=== PATIENT | female | born 1970 | race Caucasian/White ===

== ENCOUNTER 2017-07-28 07:07 | Emergency (ER) | payer BC ==
[~2017-07-28] VITALS: Ht 160 cm; Wt 79.9 kg
[~2017-07-28 07:07] MED LIST: 12 HOUR DECONG120 M1 PO; AMBIEN5 MG PO; CALCIUM 600 +1 EAC9 PO; CENTRUM ULTRA1 EAC1 PO; FIBERCON625 MG PO; IBUPROFEN400 MG PO; MAXALT10 MG PO; MIRENA52 MG IY; TYLENOL EXTRA500 MG PO; VALTREX50 MG/ML PO; ZYRTEC10 M3 PO
[2017-07-28 07:38] LABS: ADD MIUA? YES; BILIRUBIN NEGATIVE; BLOOD SMALL; COLOR YELLOW ((YELLOW)); GLUCOSE (STRIP) NEGATIVE; KETONES NEGATIVE; LEUKOCYTES NEGATIVE; NITRITE NEGATIVE; PROTEIN (STRIP) NEGATIVE; SPECIFIC GRAVITY 1.026 (1.000-1.030); UROBILINOGEN 0.2 MG/DL (0.2-1.0)
[2017-07-28 07:55] LABS: EPITHELIAL CELLS 1+ /HPF; MUCUS 1+ /LPF
[2017-07-28 07:56] LABS: BACTERIA RARE /HPF; CASTS NONE SEEN /LPF; CRYSTALS NONE SEEN; RED BLOOD CELLS 0-5 /HPF (0-5); UCUL ADDED? NO; WHITE BLOOD CELLS 0-5 /HPF (0-5)
[2017-07-28 08:50] LABS: HEMATOCRIT 39.8 % (36.0-46.0); MCH 31.5 PG (29.0-34.0); MCHC 33.7 G/DL (30.0-36.0); MCV 93.6 FL (83-99); MEAN PLAT.VOLUME 9.7 uM^3 (9.5-12.4); PLATELET COUNT 244 K/uL (156-360); RBC DIS.WIDTH-CV 12.3 % (11.8-14.6); RBC DIS.WIDTH-SD 42.2 % (39-53); RED BLOOD COUNT 4.25 M/uL (3.80-5.20); WHITE BLOOD COUNT 15.2 K/uL (4.1-10.2)
[2017-07-28 09:07] LABS: CHLORIDE 105 mEq/L (99-109); POTASSIUM 4.3 mEq/L (3.7-5.4); SODIUM 138 mEq/L (136-147)
[2017-07-28 09:09] LABS: GLUCOSE 95 mg/dL (70-99)
[2017-07-28 09:10] LABS: ANION GAP 12 MEQ/L (2-14)
[2017-07-28 09:11] LABS: TOTAL BILIRUBIN 0.8 mg/dL (0.0-1.0)
[2017-07-28 09:12] LABS: ALKALINE PHOSPHATASE 65 IU/L (3-129)
[2017-07-28 09:13] LABS: GFR ESTIMATE (CALCULATED) > 59 mL/min/
[2017-07-28 09:14] LABS: UREA NITROGEN (BUN) 17 mg/dL (9-23)
[2017-07-28 09:22] LABS: QUANTITATIVE HCG < 4.0 MIU/ML
[2017-07-28] MEDS ORDERED: PERCOCET 5/31 TABLET PO (11:15)
[2017-07-28] MEDS ORDERED: ZOFRAN4 MG PO (11:15)
[2017-07-28] MEDS ORDERED: FLOMAX0.4 MG PO (11:15)
[2017-07-28 11:33] VITALS: BP 128/72
== END 2017-07-28 11:37 | disposition home or self-care (01) ==
LOC: EME 07:07
PROVIDERS: Nurse Practitioner Family
DX: N13.2 Hydronephrosis with renal and ureteral calculous obstruction (principal); F32.9 Major depressive disorder, single episode, unspecified; Z87.440 Personal history of urinary (tract) infections
CPT/HCPCS: 74177; 76856; 80053; 81003; 83605; 84702; 85027; 99281; 99285; J1885; J2270; J2405; J7030